=== PATIENT | male | born 1990 | race Caucasian/White ===

== ENCOUNTER 2017-10-23 12:26 | Emergency (ER) | payer BC ==
[2017-10-23] MEDS ORDERED: LEVEMIR PEN SC ONE (12:40)
[2017-10-23] MEDS ORDERED: INSULIN HUMAN REGULAR 100 U/ML SOL IV ONE ×2 (12:50→13:10)
[2017-10-23] MEDS ORDERED: ONDANSETRON HCL 4 MG/2 ML SOL IV ONE (12:50)
[2017-10-23] MEDS ORDERED: ONDANSETRON HCL 4 MG/2 ML SOL ONE (12:54)
[2017-10-23] MEDS ORDERED: ACETAMINOPHEN 325 MG PO ONE (12:54)
[2017-10-23] MEDS ORDERED: ACETAMINOPHEN 500 MG 500 MG TAB ONE (12:57)
[2017-10-23] MEDS ORDERED: SODIUM CHLORIDE 0.9% 1000ML 1,000 ML IV SCH ×3 (13:00→13:45)
[2017-10-23 13:02] LABS: ABG PH 7.15 (7.35-7.45)
[2017-10-23] MEDS ORDERED: SODIUM BICARBONATE 8.4%(ADULT) 1 MEQ/ML SOL IV ONE ×4 (13:04→13:57)
[2017-10-23 13:07] LABS: ALBUMIN 3.8 gm/dl (3.4-5.0); ALKALINE PHOSPHATASE 111 IU/L (46-116); ALT 20 IU/L (14-63); AST 12 IU/L (15-37); BILIRUBIN,TOTAL 0.7 mg/dl (0.2-1.0); BLOOD UREA NITROGEN 55 mg/dl (7-18); CALCIUM 9.1 mg/dl (8.5-10.1); CARBON DIOXIDE 6.5 mEq/L (21-32); CHLORIDE 85 mMol/L (98-107); CREATININE 2.88 mg/dl (0.80-1.30); GLOM FILT RATE 27 mL/min (>60); SODIUM 129 mMol/L (136-145); TOTAL PROTEIN 7.6 gm/dl (6.4-8.2)
[2017-10-23 13:08] LABS: GLUCOSE 831 mg/dl (74-106); POTASSIUM 7.7 mMol/L (3.5-5.1)
[2017-10-23] MEDS ORDERED: SODIUM CHLORIDE 0.9% 1000ML 1,000 ML IV ONE ×2 (13:08→13:09)
[2017-10-23 13:14] LABS: LACTIC ACID 2.8 mMol/L (0.0-2.0)
[2017-10-23] MEDS ORDERED: INSULIN HUMAN REGULAR 500 U in SODIUM CHLORIDE 0.9% 500 ML 500 ML IV SCH (13:15)
[2017-10-23] MEDS ORDERED: DOPAMINE PREMIX 400,000 MCG/250 ML SOL IV PRN (13:39)
[2017-10-23] MEDS ORDERED: CALCIUM GLUCONATE 10% 1,000 MG in SODIUM CHLORIDE 0.9% 100 ML 100 ML IV ONE (13:41)
[2017-10-23] MEDS ORDERED: CALCIUM GLUCONATE 10% 100 MG/ML SOL IV ONE (13:43)
[2017-10-23 13:44] LABS: CALCIUM 9.2 mg/dl (8.5-10.1); MAGNESIUM 2.8 mg/dl (1.8-2.4)
[2017-10-23 13:45] LABS: APPEARANCE,URINE Clear; BILIRUBIN,URINE 1+ (NEGATIVE); COLOR,URINE Yellow; GLUCOSE, URINE (UA) 2+ (NEGATIVE); KETONES,URINE 4+ (NEGATIVE); LEUKOCYTE ESTERASE ,URINE NEGATIVE (NEGATIVE); NITRATE,URINE NEGATIVE (NEGATIVE); OCCULT BLOOD,URINE NEGATIVE (NEG-TRACE); PH,URINE 5.5; UROBILINOGEN,URINE 0.2 (0.2-1.0 EU)
[2017-10-23 13:47] LABS: ABG PH 7.1 (7.35-7.45)
[2017-10-23 13:51] LABS: HEMATOCRIT 44 % (39-53)
[2017-10-23 13:53] LABS: BAND NEUTROPHILS % (MANUAL) 4 %; BASOPHILS % (MANUAL) 0 % (0-3); EOSINOPHILS % (MANUAL) 0 % (0-9); LYMPHOCYTES % (MANUAL) 9 % (10-50); MONOCYTES % (MANUAL) 7 % (0-12); NEUTROPHILS % (MANUAL) 80 % (37-80); PLATELET MORPHOLOGY COMMENT ADEQUATE; POIKILOCYTOSIS MOD AMT
[2017-10-23 13:54] LABS: BURR CELLS PRESENT
[2017-10-23 14:21] VITALS: O2SAT 100
[2017-10-23 14:24] VITALS: TEMP 98.3
[2017-10-23 14:24] LABS: AMPHETAMINES NEGATIVE (NEGATIVE); BACTERIA NEGATIVE (< 1+); BARBITUATES NEGATIVE (NEGATIVE); BENZODIAZEPINES NEGATIVE (NEGATIVE); CANNABINOL(THC) NEGATIVE (NEGATIVE); COCAINE(COC) NEGATIVE (NEGATIVE); CRYSTALS NEGATIVE (0-3 AVE/HPF); EPITHELIAL CELLS NEGATIVE (SQUAMOUS); METHADONE NEGATIVE (NEGATIVE); METHAMPHETAMINES NEGATIVE (NEGATIVE); OPIATES(OP13) NEGATIVE (NEGATIVE); OXYCODONE(OXY) NEGATIVE (NEGATIVE); PROPOXYPHENE(PPX) NEGATIVE (NEGATIVE); RBC,URINE NEGATIVE (0-3AV/HPF); TRICYCLIC ANTIDEPRESSANTS NEGATIVE (NEGATIVE); WBC,URINE NEGATIVE (0-5AV/HPF)
[2017-10-23 14:27] VITALS: BP 87/46; PULSE 119; RESP 119
[2017-10-23 14:38] LABS: CALCIUM 7.9 mg/dl (8.5-10.1); CARBON DIOXIDE 8.7 mEq/L (21-32); CREATININE 2.54 mg/dl (0.80-1.30); POTASSIUM 4.3 mMol/L (3.5-5.1)
[2017-10-23 20:09] LABS: ICTOTEST,URINE NEGATIVE (NEGATIVE)
== END 2017-10-23 14:28 | disposition short-term general hospital (02) ==
LOC: ED 12:26
DX: E11.10 Type 2 diabetes mellitus with ketoacidosis without coma (principal); Z79.4 Long term (current) use of insulin
CPT/HCPCS: 36415; 36600; 71045; 80048; 80053; 80305; 81001; 82009; 82310; 82803; 83735; 84100; 85007; 85014; 85027; 85048; 93005; 96365; 96366; 96374; 96375; 99291; J0610; J1815; J2405